=== PATIENT | male | born 1970 | race Hispanic/Latino ===

== ENCOUNTER 2019-01-13 12:26 | Emergency (ER) | payer OTHER ==
--- NOTE | 2019-01-13 12:40 | Event Note ---
ED Screening Note ED Screening Note: pt presents with substernal CP that began this morning tightness across of the chest had an episode of diaphoresis only risk factor is obesity denies any HTN, HLD, DM denies any hx of heart problems pt took a pepcid This initial assessment/diagnostic orders/clinical plan/treatment(s) is/are subject to change based on patients health status, clinical progression and re- assessment by fellow clinical providers in the ED. Further treatment and workup at subsequent clinical providers discretion. Patient/guardian urged not to elope from the ED as their condition may be serious if not clinically assessed and managed. Initial orders include: labs, CXR, EKG
[2019-01-13 12:59] LABS: Basophils % (Auto) 0.3 % (0.0-1.8); Eosinophils % (Auto) 0.3 % (0.0-4.3); Hematocrit 47.5 % (35.5-45.6); Hemoglobin 16.6 gm/dl (11.8-15.2); Lymphocytes # (Auto) 2.6 K/mm3 (1.2-5.4); Lymphocytes % (Auto) 19.6 % (13.4-35.0); Mean Corpuscular HGB Conc 35 % (32-34); Mean Corpuscular Volume 84 fl (84-94); Monocytes # (Auto) 0.9 K/mm3 (0.0-0.8); Monocytes % (Auto) 6.9 % (0.0-7.3); Platelet Count 288 K/mm3 (140-440); Red Blood Count 5.68 M/mm3 (3.65-5.03); Red Cell Distribution Width 12.8 % (13.2-15.2)
--- NOTE | 2019-01-13 13:03 | XRay Report ---
CHEST 2 VIEWS INDICATION / CLINICAL INFORMATION: chest pain. COMPARISON: None available. FINDINGS: SUPPORT DEVICES: None. HEART / MEDIASTINUM: No significant abnormality. LUNGS / PLEURA: No significant pulmonary or pleural abnormality. No pneumothorax. ADDITIONAL FINDINGS: No significant additional findings. IMPRESSION: 1. No acute findings. Signer Name: Darvin Mittal MD Signed: 01/13/2019 12:59 PM Workstation Name: [id number]
[2019-01-13] MEDS ORDERED: BABY ASPIRIN ONE (13:08)
[2019-01-13 13:10] LABS: INR 1.04 (0.87-1.13)
[2019-01-13 13:11] LABS: Partial Thromboplastin Time 29.6 Sec. (24.2-36.6)
[2019-01-13] MEDS ORDERED: BABY ASPIRIN PO ONE (13:18)
--- NOTE | 2019-01-13 13:19 | Emergency Department Report ---
ED Chest Pain HPI - General Chief Complaint: Chest Pain Stated Complaint: CHEST PAIN Time Seen by Provider: 01/13/19 12:37 Source: patient Mode of arrival: Ambulatory Limitations: No Limitations - History of Present Illness Initial Comments: Patient is 48 years old male with no significant past medical history. Patient presented to the ER complaining of right sided chest pain radiating to right upper quadrant area and epigastric area. Patient stated that pain started this morning. Patient denied any shortness of breath. Patient describes his pain as soreness and dullness. Patient denied any fever or chills. MD Complaint: chest pain -: This morning Onset: during rest Pain Location: right chest Pain Radiation: abdomen Quality: dull Consistency: intermittent - Related Data Home Medications Medication Instructions Recorded Confirmed Last Taken Ibuprofen [Motrin 200 MG tab] 400 mg PO Q6H PRN 12/26/17 12/26/17 Unknown Previous Rx's Medication Instructions Recorded Last Taken Type Aspirin 81 mg PO QDAY #30 tablet 12/27/17 Unknown Rx AtorvaSTATin [Lipitor] 40 mg PO QHS #30 tablet 12/27/17 Unknown Rx predniSONE [Deltasone] 60 mg PO QDAY #10 tablet 12/27/17 Unknown Rx valACYclovir [Valtrex] 1,000 mg PO TID #21 tablet 12/27/17 Unknown Rx Allergies Allergy/AdvReac Type Severity Reaction Status Date / Time cat dander Allergy Itching Verified 01/13/19 12:27 rabbits Allergy Itching Uncoded 12/26/17 10:28 Heart Score - HEART Score History: Slightly suspicious EKG: Normal Age: 45-65 Risk factors: No known risk factors Troponin: < normal limit HEART Score: 1 - Critical Actions Critical Actions: 0-3 pts:0.9-1.7%risk of adverse cardiac event.Candidate for discharge ED Review of Systems ROS: Stated complaint: CHEST PAIN Other details as noted in HPI Comment: All other systems reviewed and negative Constitutional: denies: chills, fever Respiratory: denies: cough, shortness of breath, SOB with exertion, SOB at rest Cardiovascular: chest pain. denies: palpitations, dyspnea on exertion, orthopnea Gastrointestinal: abdominal pain. denies: nausea, vomiting, diarrhea, constipation, hematemesis, melena, hematochezia Musculoskeletal: denies: back pain ED Past Medical Hx - Past Medical History Previous Medical History?: No - Surgical History Additional Surgical History: hernia repair - Social History Smoking Status: Unknown if ever smoked Substance Use Type: None - Medications Home Medications: Home Medications Medication Instructions Recorded Confirmed Last Taken Type Ibuprofen [Motrin 200 MG tab] 400 mg PO Q6H PRN 12/26/17 12/26/17 Unknown History Aspirin 81 mg PO QDAY #30 tablet 12/27/17 Unknown Rx AtorvaSTATin [Lipitor] 40 mg PO QHS #30 tablet 12/27/17 Unknown Rx predniSONE [Deltasone] 60 mg PO QDAY #10 tablet 12/27/17 Unknown Rx valACYclovir [Valtrex] 1,000 mg PO TID #21 tablet 12/27/17 Unknown Rx ED Physical Exam - General Limitations: No Limitations General appearance: alert, in no apparent distress - Head Head exam: Present: atraumatic, normocephalic, normal inspection - Eye Eye exam: Present: normal appearance, PERRL - ENT ENT exam: Present: normal exam, normal orophraynx, mucous membranes moist - Neck Neck exam: Present: normal inspection, full ROM. Absent: tenderness, meningismus, lymphadenopathy, thyromegaly - Respiratory Respiratory exam: Present: normal lung sounds bilaterally - Cardiovascular Cardiovascular Exam: Present: regular rate, normal rhythm, normal heart sounds - GI/Abdominal GI/Abdominal exam: Present: soft, normal bowel sounds. Absent: distended, tenderness, guarding, rebound, rigid, organomegaly, mass, bruit, pulsatile mass, hernia - Extremities Exam Extremities exam: Present: normal inspection, full ROM, normal capillary refill - Back Exam Back exam: Present: normal inspection, full ROM. Absent: CVA tenderness (R), CVA tenderness (L), muscle spasm, paraspinal tenderness, vertebral tenderness - Neurological Exam Neurological exam: Present: alert, oriented X3, CN II-XII intact, normal gait, reflexes normal - Psychiatric Psychiatric exam: Present: normal mood - Skin Skin exam: Present: warm, intact, normal color ED Course Vital Signs 01/13/19 01/13/19 01/13/19 12:37 13:30 14:55 Temperature 97.9 F Pulse Rate 76 74 72 Respiratory 18 14 19 Rate Blood Pressure 153/97 Blood Pressure 149/94 147/88 [Left] O2 Sat by Pulse 97 97 98 Oximetry ED Medical Decision Making - Lab Data Result diagrams: 01/13/19 12:43 08/21/19 12:43 - EKG Data -: EKG Interpreted by Nv EKG shows normal: sinus rhythm Rate: normal - EKG Data Interpretation: no acute changes - Radiology Data Radiology results: report reviewed - Medical Decision Making Patient is 48 years old male with no significant past medical history. Patient presented to the ER complaining of right sided chest pain radiating to right upper quadrant area and epigastric area. Patient stated that pain started this morning. Patient denied any shortness of breath. Patient describes his pain as soreness and dullness. Patient denied any fever or chills. Patient EKG did not show any ST elevation. Chest x-ray is unremarkable. Labs reviewed with a negative troponin, slightly elevated white blood cells. Patient seen by Dr. Ardon, business taxes specialist and had a stress test which is negative for ischemia. Dr. Ardon advised patient can be discharged. Right lower quadrant abdominal ultrasound showed a gallbladder sludge but no stone or acute cholecystitis. Patient received Toradol 60 mg IM for pain. Patient stated that he is feeling much better. Patient is given Dr. Herrera, surgeon to follow-up in the next 2-3 days and to return to the ER if symptoms are not improved. Critical care attestation.: If time is entered above; I have spent that time in minutes in the direct care of this critically ill patient, excluding procedure time. ED Disposition Clinical Impression: Chest pain, Abdominal pain Disposition: DC-01 TO HOME OR SELFCARE Is pt being admited?: No Condition: Stable Instructions: Chest Pain (ED), Biliary Colic (ED) Referrals: AMNA BAIN MD [Primary Care Provider] - 3-5 Days MACHO HERRERA MD [Staff Physician] - 3-5 Days
[2019-01-13 13:24] LABS: Alanine Aminotransferase 72 units/L (7-56); Albumin 4.5 g/dL (3.9-5); BUN/Creatinine Ratio 18; Blood Urea Nitrogen 18 mg/dL (9-20); Calcium 10.5 mg/dL (8.4-10.2); Hemolysis Index 18
[2019-01-13] MEDS ORDERED: TYLENOL PO ONE (14:49)
--- NOTE | 2019-01-13 14:49 | Consultation ---
History of Present Illness Consult date: 01/13/19 Requesting physician: MISTY COWAN Consult reason: chest pain, known to you History of present illness: The patient is 48 years old male with no significant past medical history. 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 Mcarthur for further eval/management. He describes his chest pain as a midsternal aching which sometimes radiates into his upper back and epigastric area. The pain has been intermittently present since this morning. There is some nausea associated with the pain and pt experienced one episode of diaphoresis this morning. Patient denies any SOB, palpitations, vomiting, dizziness or syncope. Pt denies any known prior cardiac issues. Prior to this morning, pt reports he has been feeling well and in his normal state of health. He walks approx 3 miles daily for exercise and has had no exertional symptoms. Past History Social history: denies: smoking, alcohol abuse, prescription drug abuse Medications and Allergies Allergies Allergy/AdvReac Type Severity Reaction Status Date / Time cat dander Allergy Itching Verified 01/13/19 12:27 rabbits Allergy Itching Uncoded 12/26/17 10:28 Home Medications Medication Instructions Recorded Confirmed Last Taken Type Ibuprofen [Motrin 200 MG tab] 400 mg PO Q6H PRN 12/26/17 12/26/17 Unknown History Aspirin 81 mg PO QDAY #30 tablet 12/27/17 Unknown Rx AtorvaSTATin [Lipitor] 40 mg PO QHS #30 tablet 12/27/17 Unknown Rx predniSONE [Deltasone] 60 mg PO QDAY #10 tablet 12/27/17 Unknown Rx valACYclovir [Valtrex] 1,000 mg PO TID #21 tablet 12/27/17 Unknown Rx Review of Systems Constitutional: no weight loss, no weight gain, no fever, no chills Ears, nose, mouth and throat: no ear pain, no nose pain, no sinus pressure, no sinus pain Cardiovascular: chest pain, no orthopnea, no palpitations, no rapid/irregular heart beat, no edema, no syncope, no lightheadedness, no shortness of breath, no dyspnea on exertion Respiratory: no cough, no shortness of breath, no dyspnea on exertion, no congestion, no wheezing, no pain on inspiration Gastrointestinal: abdominal pain, nausea, no vomiting, no diarrhea, no constipation, no change in bowel habits Genitourinary Male: no dysuria, no hematuria, no flank pain, no discharge, no urinary frequency, no urinary hesitancy Musculoskeletal: no neck stiffness, no neck pain, no shooting arm pain, no arm numbness/tingling, no low back pain, no shooting leg pain Integumentary: no rash, no pruritis, no redness, no sores, no wounds Neurological: no head injury, no paralysis, no weakness, no parathesias, no numbness, no tingling, no seizures, no syncope Psychiatric: no anxiety Endocrine: no cold intolerance, no heat intolerance Hematologic/Lymphatic: no easy bruising, no easy bleeding Allergic/Immunologic: no urticaria, no wheezing Physical Examination Vital Signs Temp Pulse Resp BP Pulse Ox 97.9 F 76 18 153/97 97 01/13/19 12:37 01/13/19 12:37 01/13/19 12:37 01/13/19 12:37 01/13/19 12:37 General appearance: no acute distress HEENT: Positive: PERRL, Normocephaly, Mucus Membranes Moist Neck: Positive: neck supple, trachea midline Cardiac: Positive: Reg Rate and Rhythm, S1/S2 Lungs: Positive: clear to auscultation Neuro: Positive: Grossly Intact Abdomen: Negative: Tender Skin: Negative: Wound Musculoskeletal: No Pain Extremities: Absent: edema Results 01/13/19 12:43 01/13/19 12:43 Cardiac Enzymes 01/13/19 Range/Units 12:43 AST 114 H (5-40) units/L Coagulation 01/13/19 Range/Units 12:43 PT 13.3 (12.2-14.9) Sec. INR 1.04 (0.87-1.13) APTT 29.6 (24.2-36.6) Sec. CBC 01/13/19 Range/Units 12:43 WBC 13.1 H (4.5-11.0) K/mm3 RBC 5.68 H (3.65-5.03) M/mm3 Hgb 16.6 H (11.8-15.2) gm/dl Hct 47.5 H (35.5-45.6) % Plt Count 288 (140-440) K/mm3 Lymph # 2.6 (1.2-5.4) K/mm3 Moca # 0.9 H (0.0-0.8) K/mm3 Eos # 0.0 (0.0-0.4) K/mm3 Baso # 0.0 (0.0-0.1) K/mm3 Comprehensive Metabolic Panel 01/13/19 Range/Units 12:43 Sodium 141 (137-145) mmol/L Potassium 4.3 (3.6-5.0) mmol/L Chloride 102.2 (98-107) mmol/L Carbon Dioxide 26 (22-30) mmol/L BUN 18 (9-20) mg/dL Creatinine 1.0 (0.8-1.5) mg/dL Glucose 105 H (75-100) mg/dL Calcium 10.5 H (8.4-10.2) mg/dL AST 114 H (5-40) units/L ALT 72 H (7-56) units/L Alkaline Phosphatase 54 (35-129) units/L Total Protein 7.7 (6.3-8.2) g/dL Albumin 4.5 (3.9-5) g/dL - Imaging and Cardiology EKG: report reviewed, image reviewed EKG interpretations - Telemetry EKG Rhythm: Sinus Rhythm - EKG Sinus rhythms and dysrhythmias: sinus rhythm Assessment and Plan Pt taken for treadmill stress test which was negative. DDimer WNL. AMI ruled out. Pt noted to have elevated LFTs and total bili - Gallbladder U/S shows mod sludge in GB, no evidence for acute cholecystitis. Currently stable cardiac status. Pt may discharge home from cardiology standpoint. Recommend follow up in our office with Dr. Mcarthur within 1-2 weeks of hospital discharge ([phone]). Pt verbalizes understanding. The patient has been seen in conjunction with Dr. Ardon who agrees with the assessment and plan of care. - Patient Problems (1) Chest pain Current Visit: Yes Status: Acute (2) Transaminitis Current Visit: Yes Status: Acute
--- NOTE | 2019-01-13 14:50 | Ultrasound Report ---
LIMITED RUQ ABDOMINAL ULTRASOUND INDICATION: Right upper quadrant pain for one day. COMPARISON: No relevant prior imaging study available. FINDINGS: Pancreas: Visualized portions show no significant abnormality. Abdominal Aorta: No significant abnormality. IVC: No significant abnormality. Liver: No significant abnormality. Normal hepatopedal blood flow in the main portal vein. Gallbladder: There is moderate nonshadowing debris in the gallbladder consistent with sludge. No shad owing gallstones.. Bile ducts: No significant abnormality. Common bile duct measures 3.5 mm. Right kidney: No significant abnormality visualized.. Free fluid: None. Additional Findings: None. IMPRESSION: Moderate sludge in the gallbladder. No evidence for acute cholecystitis at this time.. Signer Name: Mina Donnelly Jr, MD Signed: 01/13/2019 2:46 PM Workstation Name: [id number]
[2019-01-13] MEDS ORDERED: TORADOL IM ONE (15:30)
[2019-01-13 15:54] VITALS: BP 142/80
== END 2019-01-13 15:55 | disposition home or self-care (01) ==
LOC: ED 12:26
DX: R07.9 Chest pain, unspecified (principal); R10.9 Unspecified abdominal pain; Z91.048 Other nonmedicinal substance allergy status; Z79.899 Other long term (current) drug therapy
CPT/HCPCS: 36415; 71046; 76705; 80053; 83690; 84484; 85025; 85379; 85610; 85730; 93005; 93010; 93017; 96372; 99284; J1885